=== PATIENT | male | born 1970 | race Caucasian/White ===

== ENCOUNTER 2018-05-03 06:49 | Day surgery (SDC) | payer OTHER ==
[~2018-05-03] VITALS: Ht 182.9 cm; Wt 96.8 kg
[~2018-05-03 06:49] MED LIST: FLUT16H NASAL; LEVO500 PO; SODIUM CHLORIDE 0.9% 1,000 ML IV ONE
[2018-05-03] MEDS ORDERED: ALBUTEROL SULFATE 2.5 MG/0.5 ML NEB SOLUTION NEB ONE (06:50)
[2018-05-03] MEDS ORDERED: LIDOCAINE HCL 2% 30 ML JELLY TP ONE (06:50)
[2018-05-03] MEDS ORDERED: BENZOCAINE 20% 50 MCG/SPRAY 57 GM TP ONE (06:50)
[2018-05-03] MEDS ORDERED: LIDOCAINE HCL 4% 50 ML SOLUTION TP ONE (06:50)
[2018-05-03] MEDS ORDERED: MIDAZOLAM HCL 2 MG/2 ML VIAL ONE (07:52)
[2018-05-03] MEDS ORDERED: FentaNYL CITRATE-PF 100 MCG/2 ML VIAL ONE (07:52)
[2018-05-03] MEDS ORDERED: MethylPREDNISolone SOD SUCC 125 MG/2 ML VIAL IVP ONE (09:15)
[2018-05-03] MEDS ORDERED: MethylPREDNISolone SOD SUCC 125 MG/2 ML VIAL ONE (09:43)
[2018-05-03] MEDS ORDERED: OXYGEN THERAPY IH SCH (20:00)
== END 2018-05-03 10:45 | disposition home or self-care (01) ==
LOC: SURGERY 06:49
PROVIDERS: ATTEND Internal Medicine Critical Care Medicine
DX: J38.4 Edema of larynx (principal); B37.0 Candidal stomatitis; Z79.2 Long term (current) use of antibiotics; Z79.899 Other long term (current) drug therapy
CPT/HCPCS: 31623; 31624; 71045; 87015; 87070; 87205; 87206; 87220; 88108; 88312; J2250; J2930; J3010; J7030

== ENCOUNTER 2020-10-15 06:38 | Day surgery (SDC) | payer OTHER ==
[2020-10-14 17:44] LABS: COVID AG,FIA SOURCE NASOPHARYNGEAL
[~2020-10-15] VITALS: Ht 182.9 cm; Wt 94.1 kg
[~2020-10-15 06:38] MED LIST changes: +LEVO-72 PO; -LEVO500 PO; -SODIUM CHLORIDE 0.9% 1,000 ML IV ONE
[2020-10-15] MEDS ORDERED: SODIUM CHLORIDE 0.9% 1,000 ML ONE (06:44)
[2020-10-15] MEDS ORDERED: SODIUM CHLORIDE 0.9% 1,000 ML IV ONE (07:00)
[2020-10-15] MEDS ORDERED: MIDAZOLAM HCL 2 MG/2 ML VIAL ONE (07:45)
[2020-10-15] MEDS ORDERED: FentaNYL CITRATE PF 100 MCG/2 ML VIAL ONE (07:45)
[2020-10-15] MEDS ORDERED: MethylPREDNISolone SOD SUCC 125 MG/2 ML VIAL IVP ONE (09:00)
[2020-10-15] MEDS ORDERED: MethylPREDNISolone SOD SUCC 125 MG/2 ML VIAL ONE (09:46)
[2020-10-15] MEDS ORDERED: LIDOCAINE 4% 50 ML SOLUTION ONE (17:15)
[2020-10-15] MEDS ORDERED: BENZOCAINE 20% 50 MCG/SPRAY 57 GM ONE (17:15)
[2020-10-15] MEDS ORDERED: LIDOCAINE 2% 30 ML JELLY ONE (17:15)
[2020-10-15] MEDS ORDERED: ALBUTEROL SULFATE 2.5 MG/0.5 ML NEB SOLUTION NEB ONE (17:15)
[2020-10-15] MEDS ORDERED: OXYGEN THERAPY IH SCH (20:00)
== END 2020-10-15 10:25 | disposition home or self-care (01) ==
LOC: SURGERY 06:38
PROVIDERS: ATTEND Internal Medicine Critical Care Medicine
DX: J38.4 Edema of larynx (principal); B37.0 Candidal stomatitis
CPT/HCPCS: 31623; 31624; 71045; 87015; 87070; 87101; 87206; 87220; 87426; 88108; 88184; 88185; 88312; 93005; C9803; J2250; J2930; J3010; J7030; J7613; Z7610